=== PATIENT | female | born 1975 | race Caucasian/White ===

== ENCOUNTER → 2016-04-06 | Outpatient (CLI) | payer OTHER ==
--- NOTE | 2016-04-06 17:49 | MA ---
Screening Digital Mammogram Clinical Indications: Routine screening. Technique: Standard cephalocaudal and mediolateral oblique projections are obtained. An additional o blique lateral views performed of the right breast. [facility] Comparison: March 2015 Breast density: C; The breast tissue is heterogeneously dense, which could obscure detection of small masses. Findings: CAD was reviewed. No suspicious findings are identified. Impression: Negative mammogram. BI-RADS 1. Recommendation: Routine screening is recommended in one year, as long as physical examination is eloisa ign in this patient with moderately dense breast parenchyma. [facility] will send a result letter to the patient. Negative mammography should not preclude additional workup of a clinically suspicious finding. The patient's information is entered into a reminder system with a target due date for her next mammo gram.
== END ==
LOC: BRMIMAGING 14:44
DX: Z12.31 Encounter for screening mammogram for malignant neoplasm of breast (principal)
CPT/HCPCS: G0202

== ENCOUNTER 2016-06-15 00:03 | Emergency (ER) | payer OTHER ==
[2016-06-15] MEDS ORDERED: ACETAMINOPHEN 500 MG TAB PO ONE (00:21)
[2016-06-15] MEDS ORDERED: traMADol 50 MG TAB PO ONE (00:21)
--- NOTE | 2016-06-15 00:34 | EDPHY ---
H & P Time Seen by Provider: 06/15/16 00:09 HPI/ROS: HPI The patient presents with left lower quadrant abdominal pain which has been present for the last 2 days, has been intermittent and is getting progressively worse. A few hours ago while walking, the pain became severe. It is described as both dull and sharp, however most recently has been a sharp sort of pain that radiates to her left thigh. It is associated with nausea without any vomiting. She does also endorse urinary frequency. She took a dose of Motrin prior to her arrival in the emergency room. She used an enema about 2 days ago for constipation which she has occasionally. Her last menstrual period was about 1 month ago. She does have a history of an ovarian cyst which ruptured about 20 years ago.. REVIEW OF SYSTEMS Constitutional: No fever, no chills. Eyes: No discharge. ENT: No sore throat. Cardiovascular: No chest pain, no palpitations. Respiratory: No cough, no shortness of breath. Gastrointestinal: No abdominal pain, no vomiting. Genitourinary: No hematuria. Musculoskeletal: No back pain. Skin: No rashes. Neurological: No headache. 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 PHYSICAL General Appearance: Alert, uncomfortable because of pain Eyes: Pupils equal and round no pallor or injection ENT, Mouth: Mucous membranes moist Respiratory: There are no retractions, lungs are clear to auscultation Cardiovascular: Regular rate and rhythm Gastrointestinal: Abdomen is soft with tenderness in the left lower quadrant greater than right lower quadrant Neurological: A&O, moves all extremities Skin: Warm and dry, no rashes Musculoskeletal: Neck is supple non tender Extremities: symmetrical, full range of motion Psychiatric: Patient is oriented X 3, there is no agitation Source: Patient Exam Limitations: No limitations - Personal History Tetanus Vaccine Date: 2005 - Medical/Surgical History Other PMH: Melendez's cyst left knee,Csection . Appendectomy . - Social History Smoking Status: Former smoker Constitutional: Initial Vital Signs Temperature (C) 37 C 06/15/16 00:35 Heart Rate 87 06/15/16 00:35 Respiratory Rate 20 06/15/16 00:35 Blood Pressure 119/92 H 06/15/16 00:35 O2 Sat (%) 95 06/15/16 00:35 O2 Delivery Mode Room Air Allergies/Adverse Reactions: acetaminophen [From Vicodin] Allergy (Verified 06/15/16 00:35) hydrocodone bitartrate [From Vicodin] Allergy (Verified 06/15/16 00:35) Home Medications: Medication Instructions Recorded GABAPENTIN 12/08/13 Magnesium Citrate [Magnesium 300 ml PO ONCE #2 bottle 06/15/16 Citrate 300 ml (*)] Polyethylene Glycol 3350 [Miralax 17 gm PO DAILY #30 pkt 06/15/16 17 gm (*)] Medical Decision Making - Diagnostics Imaging: Pelvic ultrasound demonstrates small right-sided involuted follicular cyst with small amount of free fluid in the pelvis, discussed with Dr. Flores of Radiology , I reviewed the images myself. CT scan abdomen pelvis with IV contrast demonstrates moderate constipation, discussed with Dr. Flores of Radiology. Differential Diagnosis: This is a 41-year-old healthy female with remote history of ovarian cyst rupture who presents now with several days of intermittent left lower quadrant abdominal pain which is increasing in intensity. Differential diagnosis includes ovarian cyst, ovarian torsion, ovarian cyst with rupture. Less likely diverticulitis, colonic perforation from enema use, constipation. In the emergency room, the patient was given Tylenol and tramadol with improvement in her symptoms. Ultrasound was initially performed which was unremarkable except for small cyst on her right ovary. I doubt this is the cause of her symptoms. The decision was made to proceed with basic labs and CT scan. CT scan revealed moderate constipation which could be the source of the patient's pain. She does have intermittent constipation for which she uses enemas. We plan to discharge her with magnesium citrate and MiraLax. I have advised her to use magnesium citrate for the next few days and then switch to MiraLax only. She will be discharged from the emergency room in good condition. - Data Points Laboratory Results: Laboratory Results 06/15/16 01:35 06/15/16 01:35 06/15/16 06/15/16 06/15/16 01:35 01:35 01:35 WBC 6.53 10^3/uL 10^3/uL (3.80-9.50) RBC 4.29 10^6/uL 10^6/uL (4.18-5.33) Hgb 13.8 g/dL g/dL (12.6-16.3) Hct 38.6 % % (38.0-47.0) MCV 90.0 fL fL (81.5-99.8) MCH 32.2 pg pg (27.9-34.1) MCHC 35.8 g/dL g/dL (32.4-36.7) RDW 12.2 % % (11.5-15.2) Plt Count 266 10^3/uL 10^3/uL (150-400) MPV 10.4 fL fL (8.7-11.7) Neut % (Auto) 57.1 % % (39.3-74.2) Lymph % (Auto) 35.5 % % (15.0-45.0) George % (Auto) 6.4 % % (4.5-13.0) Eos % (Auto) 0.5 % L % (0.6-7.6) Baso % (Auto) 0.3 % % (0.3-1.7) Nucleat RBC Rel Count 0.0 % % (0.0-0.2) Absolute Neuts (auto) 3.73 10^3/uL 10^3/uL (1.70-6.50) Absolute Lymphs (auto) 2.32 10^3/uL 10^3/uL (1.00-3.00) Absolute Monos (auto) 0.42 10^3/uL 10^3/uL (0.30-0.80) Absolute Eos (auto) 0.03 10^3/uL 10^3/uL (0.03-0.40) Absolute Basos (auto) 0.02 10^3/uL 10^3/uL (0.02-0.10) Absolute Nucleated RBC 0.00 10^3/uL 10^3/uL (0-0.01) Immature Gran % 0.2 % % (0.0-1.1) Immature Gran # 0.01 10^3/uL 10^3/uL (0.00-0.10) Sodium 143 mEq/L mEq/L (134-144) Potassium 4.0 mEq/L mEq/L (3.5-5.2) Chloride 112 mEq/L H mEq/L (97-110) Carbon Dioxide 19 mEq/l L mEq/l (22-31) Anion Gap 12 mEq/L mEq/L (8-16) BUN 11 mg/dL mg/dL (7-23) Creatinine 0.7 mg/dL mg/dL (0.6-1.0) Estimated GFR > 60 Glucose 89 mg/dL mg/dL (70-100) Calcium 9.7 mg/dL mg/dL (8.5-10.4) Total Bilirubin 1.3 mg/dL mg/dL (0.1-1.4) AST 17 IU/L IU/L (14-46) ALT 24 IU/L IU/L (9-52) Alkaline Phosphatase 61 IU/L IU/L (38-126) Total Protein 7.1 g/dL g/dL (6.3-8.2) Albumin 4.6 g/dL g/dL (3.5-5.0) Beta HCG, Qual NEGATIVE Urine Color Urine Appearance Urine pH Ur Specific Gheens Urine Protein Urine Ketones Urine Blood Urine Nitrate Urine Bilirubin Urine Urobilinogen Ur Leukocyte Esterase Ur Culture Indicated? Urine Glucose 06/15/16 00:30 WBC RBC Hgb Hct MCV MCH MCHC RDW Plt Count MPV Neut % (Auto) Lymph % (Auto) George % (Auto) Eos % (Auto) Baso % (Auto) Nucleat RBC Rel Count Absolute Neuts (auto) Absolute Lymphs (auto) Absolute Monos (auto) Absolute Eos (auto) Absolute Basos (auto) Absolute Nucleated RBC Immature Gran % Immature Gran # Sodium Potassium Chloride Carbon Dioxide Anion Gap BUN Creatinine Estimated GFR Glucose Calcium Total Bilirubin AST ALT Alkaline Phosphatase Total Protein Albumin Beta HCG, Qual Urine Color SUZI Urine Appearance MODERATELY TURBID Urine pH 6.0 (5.0-7.5) Ur Specific Gheens 1.017 (1.002-1.030) Urine Protein NEGATIVE (NEGATIVE) Urine Ketones TRACE H (NEGATIVE) Urine Blood NEGATIVE (NEGATIVE) Urine Nitrate NEGATIVE (NEGATIVE) Urine Bilirubin NEGATIVE (NEGATIVE) Urine Urobilinogen NEGATIVE EU EU (0.2-1.0) Ur Leukocyte Esterase NEGATIVE (NEGATIVE) Ur Culture Indicated? NOT INDICATED (NI) Urine Glucose NEGATIVE (NEGATIVE) Medications Given: Discontinued Medications Acetaminophen (Tylenol) 1,000 mg PO EDNOW ONE Stop: 06/15/16 00:22 Last Admin: 06/15/16 00:33 Dose: 1,000 mg Magnesium Citrate (Magnesium Citrate) 300 ml PO ONCE ONE Stop: 06/15/16 03:09 Last Admin: 06/15/16 03:40 Dose: 300 ml Tramadol HCl (Ultram) 50 mg PO EDNOW ONE Stop: 06/15/16 00:22 Last Admin: 06/15/16 00:34 Dose: 50 mg Departure - Departure Disposition: Home, Routine, Self-Care Clinical Impression: Abdominal pain Qualifiers: Abdominal location: left lower quadrant Qualified Code(s): R10.32 - Left lower quadrant pain Constipation Qualifiers: Constipation type: unspecified constipation type Qualified Code(s): K59.00 - Constipation, unspecified Condition: Good Instructions: Magnesium Citrate (By mouth), Constipation (ED), High Fiber Diet (ED) Additional Instructions: Please make sure to drink plenty of fluids in the next few days. You can try prune juice to help. Please make sure the plenty of fruits and vegetables. For the next 1-2 days use the magnesium citrate in addition to the MiraLax. You should take the MiraLax every day for about 2 weeks, or until your bowel movement seem regular. You can follow up with your regular doctor if you have ongoing pain after having normal bowel movements. Referrals: Jackson Martinez DO [Primary Care Provider] - As per Instructions Prescriptions: Magnesium Citrate [Magnesium Citrate 300 ml (*)] 300 ml PO ONCE #2 bottle Polyethylene Glycol 3350 [Miralax 17 gm (*)] 17 gm PO DAILY #30 pkt
[2016-06-15 00:37] LABS: COLOR AMBER; LEUKOCYTE ESTERASE,URINE NEGATIVE (NEGATIVE); NITRITE,URINE NEGATIVE (NEGATIVE)
[2016-06-15 01:45] LABS: % IMMATURE GRANULYOCYTES 0.2 % (0.0-1.1); ABSOLUTE IMMATURE GRANULOCYTES 0.01 10^3/uL (0.00-0.10); ADD DIFF? NO; ADD MORPH? NO; ADD SCAN? NO; ATYPICAL LYMPHOCYTE FLAG 0 (0-99); FRAGMENT RBC FLAG 0 (0-99); HEMATOCRIT 38.6 % (38.0-47.0); HEMOGLOBIN 13.8 g/dL (12.6-16.3); LEFT SHIFT FLG 0 (0-99); LIPEMIA HEMOLYSIS FLAG 90 (0-99); MEAN CELL HEMOGLOBIN 32.2 pg (27.9-34.1); MEAN CELL HEMOGLOBIN CONCENTR. 35.8 g/dL (32.4-36.7); MEAN PLATELET VOLUME 10.4 fL (8.7-11.7); PLATELET CLUMPS FLAG 0 (0-99); PLATELET COUNT 266 10^3/uL (150-400); RED BLOOD CELL COUNT 4.29 10^6/uL (4.18-5.33); RED CELL DISTRIBUTION WIDTH 12.2 % (11.5-15.2)
[2016-06-15] MEDS ORDERED: IOPAMIDOL (ISOVUE-300) 100 ML BTL IV ONE (01:50)
[2016-06-15 02:00] LABS: ANION GAP 12 mEq/L (8-16); CALCIUM 9.7 mg/dL (8.5-10.4); CARBON DIOXIDE 19 mEq/l (22-31); CHLORIDE 112 mEq/L (97-110); CREATININE 0.7 mg/dL (0.6-1.0); GLOMERULAR FILTRATION RATE > 60; GLUCOSE 89 mg/dL (70-100); SODIUM 143 mEq/L (134-144)
[2016-06-15 02:09] LABS: ALANINE AMINOTRANSFERASE 24 IU/L (9-52); ALBUMIN 4.6 g/dL (3.5-5.0); ALKALINE PHOSPHATASE 61 IU/L (38-126); ASPARTATE AMINOTRANSFERASE 17 IU/L (14-46); BILIRUBIN,TOTAL 1.3 mg/dL (0.1-1.4); TOTAL PROTEIN 7.1 g/dL (6.3-8.2)
[2016-06-15] MEDS ORDERED: MAGNESIUM CITRATE 300 ML BOTTLE PO ONE (03:08)
[2016-06-15 03:42] VITALS: BP 128/86; PULSE 64; RESP 16; TEMP 98.2; O2SAT 93
== END 2016-06-15 03:42 | disposition home or self-care (01) ==
LOC: EEVIPCON 00:03
DX: K59.00 Constipation, unspecified (principal); Z87.891 Personal history of nicotine dependence
CPT/HCPCS: Q9967

== ENCOUNTER → 2016-08-19 | Outpatient (CLI) | payer OTHER | LOC: FIMAGING 09:49 | PROVIDERS: ATTEND Family Medicine | DX: N63 Unspecified lump in breast (principal); N92.6 Irregular menstruation, unspecified | CPT/HCPCS: G0206 ==

== ENCOUNTER → 2017-04-11 | Outpatient (CLI) | payer OTHER | LOC: CIMAGING 15:34 | PROVIDERS: ATTEND Family Medicine | DX: M25.562 Pain in left knee (principal); R22.42 Localized swelling, mass and lump, left lower limb | CPT/HCPCS: 73562-PO ==

== ENCOUNTER → 2017-07-11 | Outpatient (CLI) | payer OTHER | LOC: CIMAGING 12:50 | PROVIDERS: ATTEND Physician Assistant Medical | DX: N83.02 Follicular cyst of left ovary (principal); Z30.431 Encounter for routine checking of intrauterine contraceptive device | CPT/HCPCS: 76856-PO ==

== ENCOUNTER → 2017-12-07 | Outpatient (CLI) | payer OTHER | LOC: CIMAGING 12:49 | PROVIDERS: ATTEND Family Medicine | DX: N63.21 Unspecified lump in the left breast, upper outer quadrant (principal) | CPT/HCPCS: 76641-PO ==

== ENCOUNTER → 2018-01-19 | Outpatient (CLI) | payer OTHER | LOC: CIMAGING 14:09 | PROVIDERS: ATTEND Nurse Practitioner Family | DX: R10.814 Left lower quadrant abdominal tenderness (principal) | CPT/HCPCS: 76856-PO ==

== ENCOUNTER → 2018-01-19 | Outpatient (CLI) | payer OTHER | LOC: CIMAGING 15:41 | PROVIDERS: ATTEND Nurse Practitioner Family | DX: K59.00 Constipation, unspecified (principal) | CPT/HCPCS: 74018-PO ==